=== PATIENT | female | born 1950 | race Caucasian/White ===

== ENCOUNTER 2021-11-23 21:03 | Emergency (ER) | payer BC ==
[~2021-11-23] VITALS: Ht 154.9 cm; Wt 70.4 kg
[2021-11-24 00:53] LABS: BASOPHILS # (AUTO) 0.1 10^3/uL (0.0-0.1); BASOPHILS % (AUTO) 1 % (0-10); EOSINOPHILS # (AUTO) 0.2 10^3/uL (0.0-0.3); EOSINOPHILS % (AUTO) 2 % (0-10); HEMATOCRIT 35 % (35-52); HEMOGLOBIN 12.7 g/dL (11.5-16.0); LYMPHOCYTES # (AUTO) 3.2 10^3/uL (1.0-4.0); LYMPHOCYTES % (AUTO) 35 % (12-44); MEAN CORPUSCULAR HEMOGLOBIN 29 pg (25-34); MEAN CORPUSCULAR HGB CONC 36 g/dL (32-36); MEAN CORPUSCULAR VOLUME 81 fL (80-99); MEAN PLATELET VOLUME 9.2 fL (9.0-12.2); MONOCYTES # (AUTO) 0.7 10^3/uL (0.0-1.0); MONOCYTES % (AUTO) 7 % (0-12); NEUTROPHILS # (AUTO) 5.2 10^3/uL (1.8-7.8); NEUTROPHILS % (AUTO) 56 % (42-75); PLATELET COUNT 313 10^3/uL (130-400); WHITE BLOOD COUNT 9.4 10^3/uL (4.3-11.0)
[2021-11-24 00:58] LABS: ALBUMIN 4.5 GM/DL (3.2-4.5)
[2021-11-24 00:59] LABS: POTASSIUM 3.2 MMOL/L (3.6-5.0)
[2021-11-24 01:00] LABS: CALCIUM 9.8 MG/DL (8.5-10.1)
[2021-11-24 01:01] LABS: TOTAL PROTEIN 7.3 GM/DL (6.4-8.2)
[2021-11-24 01:03] LABS: BILIRUBIN,TOTAL 0.5 MG/DL (0.1-1.0)
[2021-11-24 01:05] LABS: CREATININE SERUM 1.13 MG/DL (0.60-1.30)
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
[2021-11-24 04:43] VITALS: BP 164/80
[2021-11-24] MEDS ORDERED: KETOROLAC 30 MG/ML VIAL IVP ONE (04:45)
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
== END 2021-11-24 05:04 | disposition home or self-care (01) ==
LOC: EDUNIT# 21:03 → ER 21:05
DX: S09.90XA Unspecified injury of head, initial encounter (principal); R10.9 Unspecified abdominal pain; Z28.310 Unvaccinated for COVID-19; V89.2XXA Person injured in unspecified motor-vehicle accident, traffic, initial encounter; Y92.410 Unspecified street and highway as the place of occurrence of the external cause
CPT/HCPCS: 36415; 70450; 71260; 72125; 73590; 74177; 80053; 85025